=== PATIENT | male | born 1990 | race Caucasian/White ===

== ENCOUNTER 2019-04-07 14:30 | Emergency (ER) | payer OTHER, BC, SELFPAY ==
[2019-04-07 14:31] VITALS: BP 135/67; PULSE 79; RESP 16; TEMP 36.4; O2SAT 96; BMI 34.2
--- NOTE | 2019-04-07 16:08 | ED.VISSUMM ---
- ER Visit Summary Date of Service: 04/07/19 Chief Complaint: Left forearm laceration History of Present Illness: The patient is a 29 M who presents with a laceration to his left forearm that occurred today. Patient states he was in a tree using a hook saw when it fell and cut his left forearm. Patient states the bleeding stopped after several minutes of pressure. Patient describes the pain as a dull ache at the present time. Patient denies any paresthesias or weakness. Patient is unsure of his last tetanus. Patient denies any other injuries. Physical Examination: Vital signs are stable. Patient is afebrile. Patient is in no acute distress. Musculoskeletal exam reveals a 5 cm laceration of the dorsal aspect of the left distal forearm. There are no foreign bodies noted. There are no tendon lacerations noted. There is full range of motion of the left wrist and left elbow. Sensation was intact to light touch in the radial, median, and ulnar areas. Capillary refill was less than 2 seconds in all digits. Radial pulses are equal bilaterally. Emergency Department Course and Treatment: The wound was cleaned and irrigated with copious amounts of normal saline. The wound was anesthetized with 1% plain lidocaine locally. There was small foreign material removed. Wound was closed with 5 #4-0 horizontal mattress sutures under sterile conditions. Patient tolerated procedure well. Bacitracin dressing was applied. Patient was given a tetanus booster. Patient was instructed to follow-up with [facility] in 7 days for wound recheck and suture removal. Patient understood and was agreeable with the plan. All questions were answered. Disposition: Discharge home Impression: Left forearm laceration This note was generated with [employer] dictation software. It may contain incorrect words, spelling, and punctuation that were not noted in review of the chart prior to signing ED Disposition - Plan for ED Patient: Disposition: Home or Assisted Living Diagnosis: Laceration of left forearm Instructions: ED Laceration Ext Sutr Stap Tape Prescriptions: Cephalexin [Keflex] 500 mg PO Q6 #40 cap Referrals: Care Physician,No Primary [Primary Care Provider] - [facility] [GROUP OF PHYSICIANS] - 7 Days for suture removal
--- NOTE | 2019-04-07 16:13 | ED.DCSUM_ITS ---
- ER Visit Summary Date of Service: 04/07/19 Chief Complaint: Left forearm laceration History of Present Illness: The patient is a 29 M who presents with a laceration to his left forearm that occurred today. Patient states he was in a tree using a hook saw when it fell and cut his left forearm. Patient states the bleeding stopped after several minutes of pressure. Patient describes the pain as a dull ache at the present time. Patient denies any paresthesias or weakness. Patient is unsure of his last tetanus. Patient denies any other injuries. Physical Examination: Vital signs are stable. Patient is afebrile. Patient is in no acute distress. Musculoskeletal exam reveals a 5 cm laceration of the dorsal aspect of the left distal forearm. There are no foreign bodies noted. There are no tendon lacerations noted. There is full range of motion of the left wrist and left elbow. Sensation was intact to light touch in the radial, median, and ulnar areas. Capillary refill was less than 2 seconds in all digits. Radial pulses are equal bilaterally. Emergency Department Course and Treatment: The wound was cleaned and irrigated with copious amounts of normal saline. The wound was anesthetized with 1% plain lidocaine locally. There was small foreign material removed. Wound was closed with 5 #4-0 horizontal mattress sutures under sterile conditions. Patient tolerated procedure well. Bacitracin dressing was applied. Patient was given a tetanus booster. Patient was instructed to follow-up with [facility] in 7 days for wound recheck and suture removal. Patient understood and was agreeable with the plan. All questions were answered. Disposition: Discharge home Impression: Left forearm laceration This note was generated with [employer] dictation software. It may contain incorrect words, spelling, and punctuation that were not noted in review of the chart prior to signing ED Disposition - Plan for ED Patient: Disposition: Home or Assisted Living Diagnosis: Laceration of left forearm Instructions: ED Laceration Ext Sutr Stap Tape Prescriptions: Cephalexin [Keflex] 500 mg PO Q6 #40 cap Referrals: Care Physician,No Primary [Primary Care Provider] - [facility] [GROUP OF PHYSICIANS] - 7 Days for suture removal
[2019-04-07] MEDS: Diphth,Pertuss(Acell),Tet Vac 0.5 ML Vial IM (16:30)
[2019-04-07] MEDS: BACITRACIN 15 GM Tube 1 APPLIC TOPICAL (16:45)
[2019-04-07 16:46] VITALS: BP 133/81; PULSE 78; RESP 16; O2SAT 99
== END 2019-04-07 16:47 | disposition home or self-care (01) ==
PROVIDERS: Emergency Provider Emergency Medicine
DX: S51.812A Laceration without foreign body of left forearm, initial encounter (principal); W27.0XXA Contact with workbench tool, initial encounter; Y93.9 Activity, unspecified; Y92.9 Unspecified place or not applicable
CPT/HCPCS: 12002; 90471; 90715; 99285